=== PATIENT | female | born 1985 | race Caucasian/White ===

== ENCOUNTER 2020-06-22 17:14 | Emergency (ER) | payer SELFPAY ==
[2020-06-22] MEDS ORDERED: MORPHINE SULFATE INJ 10 MG/ML VIAL IV ONE (17:29)
[2020-06-22] MEDS ORDERED: ONDANSETRON INJ 4 MG/2 ML VIAL IV ONE (17:29)
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
--- NOTE | 2020-06-22 19:09 | CT ---
EXAM: Abdomen/Pelvis w/Contrast CLINICAL INDICATION: 34-year-old female with LEFT lower quadrant abdominal pain and blood in stool. COMPARISON: None. EXAMINATION: CT of the abdomen and pelvis was performed following intravenous administration of contrast. Oral contrast was not administered. Multiplanar reformatted images were provided. This exam was performed according to our departmental dose optimization program which includes use of automated exposure control, adjustment of the mA and/or kV according to patient size and/or use of iterative reconstruction technique. FINDINGS: Chest: Evaluation through the lung bases reveals no focal opacity, pleural effusion or pneumothorax. Heart size is within normal limits. No pericardial effusion. Abdomen and pelvis: The liver, gallbladder, pancreas, spleen, and bilateral adrenal glands are within normal limits. Atrophic appearing LEFT kidney. Nonspecific mild prominence of the RIGHT renal pelvis without findings to suggest obstructive etiology. The vessels are patent and normal in caliber. No abdominopelvic lymph nodes are noted to be pathologically enlarged by CT measurement criteria. The bowel is within normal limits without abnormal bowel wall thickness or bowel dilation. No free air. No free abdominopelvic fluid collections. The appendix is within normal limits. Trace free fluid present within the dependent pelvis, a nonspecific finding which may be physiologic in a patient this age. The osseous structures reveal degenerative change of the lower lumbar spine. Mild diffuse disk bulge at L3-4, L4-5 and L5-S1. Neural foraminal narrowing of L4-5 and L5-S1 secondary to posterior osseous spurring and disk bulge. Loss of disk height and vacuum disk phenomenon of the L4-5 and L5-S1. . Small fat-containing umbilical hernia. The uterus and bilateral ovaries are within normal limits of a contrast-enhanced examination. 14 mm focus of RIGHT ovarian enhancement suggestive of a corpus luteum type cyst. Thickened appearance of the bladder wall may be secondary to incomplete distention, however can be seen in the setting of infectious or inflammatory process. Please correlate with laboratory values. IMPRESSION: 1. No specific acute intra-abdominal findings are noted to suggest etiology of the patient's abdominal pain. 2. Trace free fluid present within the dependent pelvis, a nonspecific finding which may be physiologic in a patient this age. 3. Thickened appearance of the bladder wall may be secondary to incomplete distention, however can be seen in the setting of infectious or inflammatory process. Please correlate with laboratory values. 4. Nonspecific mild prominence of the RIGHT renal pelvis without findings to suggest obstructive etiology. 5. 1.4 cm corpus luteum ovarian cyst. No follow-up imaging is recommended. Reference: J Am Nikunj Radiol 2013;10:[id number] Electronically signed by: Harleen Ceja MD 06/22/2020 7:07 PM CDT
[2020-06-22 19:36] VITALS: BP 123/78; TEMP 97.8; O2SAT 98
== END 2020-06-22 19:25 | disposition home or self-care (01) ==
LOC: ER 17:14
DX: R10.32 Left lower quadrant pain (principal); R11.2 Nausea with vomiting, unspecified; R19.7 Diarrhea, unspecified; K62.5 Hemorrhage of anus and rectum; N83.11 Corpus luteum cyst of right ovary; N18.9 Chronic kidney disease, unspecified; F31.9 Bipolar disorder, unspecified; Z86.19 Personal history of other infectious and parasitic diseases; Z87.891 Personal history of nicotine dependence
CPT/HCPCS: 36415; 74177; 80053; 81001; 81025; 83690; 85025; 85610; 85730; J2405